=== PATIENT | male | born 1940 | race Caucasian/White ===

== ENCOUNTER 2024-02-20 13:25 | Day surgery (SDC) | payer MEDICARE, BC ==
[~2024-02-20 13:25] MED LIST: Lactated Ringers 1,000 ML IV SCH; Sodium Chloride 0.9% 10 ML Syringe FLUSH PRN; Sodium Chloride 0.9% 10 ML Syringe FLUSH SCH
[2024-02-20] MEDS ORDERED: Midazolam 1 MG/ML 2 ML SDV ONE (13:37)
[2024-02-20] MEDS ORDERED: fentaNYL 250 MCG/5 ML SDV ONE (13:37)
[2024-02-20] MEDS ORDERED: ceFAZolin 2 GM Vial ONE (13:38)
[2024-02-20] MEDS ORDERED: Lidocaine 1% 4 ML ONE (13:38)
[2024-02-20] MEDS ORDERED: Propofol 200 MG/20 ML SDV ONE (13:38)
[2024-02-20] MEDS ORDERED: Rocuronium 50 MG/5 ML Vial ONE (13:38)
[2024-02-20] MEDS ORDERED: Lidocaine 1% 2 ML ONE (13:42)
[2024-02-20] MEDS: Lactated Ringers 1,000 ML IV SCH (14:00)
[2024-02-20] MEDS ORDERED: Sodium Chloride 0.9% 10 ML Syringe FLUSH PRN (14:04)
[2024-02-20] MEDS ORDERED: Sodium Chloride 0.9% 10 ML Syringe FLUSH SCH (14:15)
[2024-02-20] MEDS: Acetaminophen 325 MG Tab PO SCH (14:17)
[2024-02-20] MEDS: Bupivacaine 0.5% 30 ML SDV ONE (16:07)
[2024-02-20] MEDS ORDERED: Sugammadex Sodium 200 MG/2 ML VIAL IV ONE (16:30)
[2024-02-20] MEDS ORDERED: HYDROmorphone 0.5 MG/0.5 ML Syringe IVPUSH PRN (17:06)
[2024-02-20] MEDS ORDERED: fentaNYL 100 MCG/2 ML SDV IVPUSH PRN (17:06)
[2024-02-20] MEDS ORDERED: Ondansetron 4 MG/2 ML SDV IVPUSH PRN (17:06)
[2024-02-20] MEDS: EPINEPHrine 1 MG/ML SDV ONE (17:09)
[2024-02-20] MEDS ORDERED: traMADol 50 MG Tab PO PRN (17:20)
[2024-02-21] MEDS ORDERED: Acetaminophen 325 MG Tab PO SCH (13:30)
== END 2024-02-20 19:25 | disposition home or self-care (01) ==
LOC: JD.SDS 13:25
PROVIDERS: ATTEND Surgery
DX: K42.9 Umbilical hernia without obstruction or gangrene (principal); I25.10 Atherosclerotic heart disease of native coronary artery without angina pectoris; E11.9 Type 2 diabetes mellitus without complications; I10 Essential (primary) hypertension; K21.9 Gastro-esophageal reflux disease without esophagitis; Z87.891 Personal history of nicotine dependence
CPT/HCPCS: 49591; 82947; A9270; J0171; J0665; J0690; J2250; J2704; J3010; J3490; J7120

== ENCOUNTER 2024-07-26 18:08 | Inpatient (IN) | payer MEDICARE, BC ==
[2024-07-26 19:10] LABS: HEMATOCRIT 39.1 % (42.0-52.0); HEMOGLOBIN 13.4 gm/dl (14.0-18.0); MEAN CORPUSCULAR HEMOGLOBIN 31.6 pg (28.0-32.0); MEAN CORPUSCULAR HGB CONC 34.3 g/dl (32.0-36.0); MEAN CORPUSCULAR VOLUME 92.2 fl (83.0-99.0); MEAN PLATELET VOLUME 10.4 fl (9.4-12.4); PLATELET COUNT,PLT 186 K/mm3 (150-400); RED BLOOD CELL COUNT 4.24 M/mm3 (4.52-5.90); WHITE BLOOD CELL COUNT,WBC 6.49 K/mm3 (3.9-11.3)
[2024-07-26] MEDS: Sodium Chloride 0.9% 1,000 ML IV ONE (19:10)
[2024-07-26] MEDS: Ondansetron 4 MG/2 ML SDV IVPUSH ONE (19:12)
[2024-07-26] MEDS: Sodium Chloride 0.9% 10 ML Syringe FLUSH PRN (19:13)
[2024-07-26 19:30] LABS: BAND PERCENT MAN 0 % (0-10); BASOPHILS PERCENT MAN 0 (0.2-1.2); EOSINOPHILS PERCENT MAN 0 % (0.8-7.0); LYMPHOCYTES % ATYPICAL MANUAL 0 %; LYMPHOCYTES PERCENT MAN 9 % (20-40); MONOCYTES PERCENT MAN 6 % (2-10)
[2024-07-26 19:32] LABS: INR 1.14; OVALOCYTES 1+ SLIGHT; PLATELET COUNT ESTIMATE ADEQUATE; POIKILOCYTOSIS 1+ SLIGHT
[2024-07-26 19:44] LABS: A/G RATIO 0.9 (1-2); ALBUMIN 3.4 g/dl (3.4-5.0); ANION GAP 13.8 (5-15); BILIRUBIN TOTAL 1.6 mg/dL (0.2-1.0); BUN/CREATININE RATIO 14.6 (14-18); C-REACTIVE PROTEIN 0.99 mg/dL (<0.30); CALCIUM 8.9 mg/dL (8.5-10.1); CREATININE 1.3 mg/dL (0.7-1.3); EST CRCL DRUG DOSING (CG) 42.32 mL/min
[2024-07-26 19:58] LABS: POTASSIUM,K 3.8 mEq/L (3.5-5.1)
[2024-07-26] MEDS: Oseltamivir 75 MG Cap PO ONE (22:16)
[2024-07-27] MEDS: Acetaminophen 325 MG Tab PO PRN ×2 (00:25→12:50)
[2024-07-27] MEDS: Metoprolol Succinate 50 MG Tab.ER PO SCH (00:25)
[2024-07-27 05:25] LABS: BASOPHILS PERCENT AUTO 0.3 % (0.0-1.0); HEMATOCRIT 37.7 % (42.0-52.0); IMMATURE GRAN ABSOLUTE AUTO 0.04 K/mm3 (0.00-0.05); IMMATURE GRAN PERCENT AUTO 0.6 % (0.0-0.4); LYMPHOCYTES ABSOLUTE AUTO 1.1 K/mm3 (1.0-4.8); MEAN CORPUSCULAR HEMOGLOBIN 31.6 pg (28.0-32.0); MEAN CORPUSCULAR HGB CONC 34.5 g/dl (32.0-36.0); MEAN CORPUSCULAR VOLUME 91.7 fl (83.0-99.0); MEAN PLATELET VOLUME 10.9 fl (9.4-12.4); MONOCYTES ABSOLUTE AUTO 0.6 K/mm3 (0.0-0.8); MONOCYTES PERCENT AUTO 8.8 % (0.0-8.0); NEUTROPHILS ABSOLUTE AUTO 5.4 K/mm3 (1.8-7.7); NEUTROPHILS PERCENT AUTO 75.3 % (41.0-71.0); PLATELET COUNT,PLT 159 K/mm3 (150-400); RED BLOOD CELL COUNT 4.11 M/mm3 (4.52-5.90); WHITE BLOOD CELL COUNT,WBC 7.18 K/mm3 (3.9-11.3)
[2024-07-27 05:26] LABS: A/G RATIO 0.9 (1-2); ALBUMIN 3.1 g/dl (3.4-5.0); BILIRUBIN TOTAL 1.5 mg/dL (0.2-1.0); CALCIUM 8.4 mg/dL (8.5-10.1); CREATININE 1.2 mg/dL (0.7-1.3); EST CRCL DRUG DOSING (CG) 44.74 mL/min; MAGNESIUM 1.6 mg/dL (1.8-2.4); PHOSPHORUS 2.9 mg/dL (2.6-4.7); PROTEIN TOTAL,TP 6.4 g/dl (6.4-8.2)
[2024-07-27] MEDS: Oseltamivir 30 MG Cap PO SCH (09:00)
[2024-07-27] MEDS: Levothyroxine 50 MCG Tab PO SCH (09:00)
[2024-07-27] MEDS: Enoxaparin 40 MG/0.4 ML Syringe SUBCUT SCH (09:00)
[2024-07-27] MEDS: Tamsulosin 0.4 MG Cap.ER PO SCH (09:00)
[2024-07-27] MEDS: Clopidogrel 75 MG Tab PO SCH (09:00)
[2024-07-27] MEDS: Spironolactone 25 MG Tab PO SCH (09:01)
[2024-07-27] MEDS: prednisoLONE Acetate 1% Ophth Susp 5 ML Bottle EYERT SCH (09:01)
[2024-07-27] MEDS: Lisinopril 20 MG Tab PO SCH (09:05)
[2024-07-27] MEDS ORDERED: cefTRIAXone 1 GM in Sodium Chloride 0.9% 50 ML IV SCH (10:00)
[2024-07-27] MEDS: cefTRIAXone 1 GM Vial IV SCH (11:37)
[2024-07-27] MEDS: Doxycycline 100 MG in Sodium Chloride 0.9% 100 ML IV SCH (11:37)
[2024-07-27] MEDS: Latanoprost 0.005% Ophth Soln 2.5 ML Bottle EYERT SCH (18:09)
[2024-07-27] MEDS ORDERED: 50% Dextrose in Water 50 ML Syringe IVPUSH PRN (21:08)
[2024-07-27] MEDS: atorvaSTATin 20 MG Tab PO SCH (21:57)
[2024-07-27] MEDS: Magnesium Sulfate/Water Premix 2 GM in Premix Bag 1 BAG IV ONE (21:57)
[2024-07-28 06:02] LABS: BASOPHILS PERCENT AUTO 0.2 % (0.0-1.0); EOSINOPHILS PERCENT AUTO 0.1 % (0.0-6.0); HEMATOCRIT 41.6 % (42.0-52.0); IMMATURE GRAN ABSOLUTE AUTO 0.02 K/mm3 (0.00-0.05); IMMATURE GRAN PERCENT AUTO 0.2 % (0.0-0.4); LYMPHOCYTES ABSOLUTE AUTO 1.5 K/mm3 (1.0-4.8); LYMPHOCYTES PERCENT AUTO 17.3 % (24.0-44.0); MEAN CORPUSCULAR HEMOGLOBIN 31.5 pg (28.0-32.0); MEAN CORPUSCULAR HGB CONC 33.7 g/dl (32.0-36.0); MEAN CORPUSCULAR VOLUME 93.7 fl (83.0-99.0); MEAN PLATELET VOLUME 10.4 fl (9.4-12.4); MONOCYTES ABSOLUTE AUTO 0.9 K/mm3 (0.0-0.8); MONOCYTES PERCENT AUTO 10.1 % (0.0-8.0); NEUTROPHILS ABSOLUTE AUTO 6.4 K/mm3 (1.8-7.7); NEUTROPHILS PERCENT AUTO 72.1 % (41.0-71.0); PLATELET COUNT,PLT 176 K/mm3 (150-400); RED BLOOD CELL COUNT 4.44 M/mm3 (4.52-5.90); WHITE BLOOD CELL COUNT,WBC 8.85 K/mm3 (3.9-11.3)
[2024-07-28 06:39] LABS: A/G RATIO 0.9 (1-2); ALBUMIN 3.1 g/dl (3.4-5.0); ANION GAP 14.2 (5-15); BILIRUBIN TOTAL 1.3 mg/dL (0.2-1.0); CALCIUM 8.3 mg/dL (8.5-10.1); CREATININE 1.2 mg/dL (0.7-1.3); EST CRCL DRUG DOSING (CG) 44.67 mL/min; POTASSIUM,K 4.2 mEq/L (3.5-5.1); PROTEIN TOTAL,TP 6.6 g/dl (6.4-8.2)
[2024-07-28] MEDS: Doxycycline Monohydrate 100 MG Cap PO SCH (08:13)
[2024-07-28] MEDS: Insulin Lispro 100 Unit/ML 3 ML KwikPen SUBCUT SCH (08:19)
[2024-07-28] MEDS: Metoprolol Tartrate 5 MG/5 ML SDV IVPUSH ONE ×2 (18:54→23:26)
[2024-07-28 19:03] LABS: TSH 1.458 uIU/mL (0.358-3.74)
[2024-07-28 19:19] LABS: ANION GAP 18.9 (5-15); BUN/CREATININE RATIO 21.4 (14-18); CALCIUM 8.4 mg/dL (8.5-10.1); CREATININE 1.4 mg/dL (0.7-1.3); EST CRCL DRUG DOSING (CG) 38.29 mL/min; POTASSIUM,K 3.9 mEq/L (3.5-5.1)
[2024-07-29 05:44] LABS: BASOPHILS PERCENT AUTO 0.1 % (0.0-1.0); EOSINOPHILS PERCENT AUTO 0.1 % (0.0-6.0); HEMOGLOBIN 14.8 gm/dl (14.0-18.0); IMMATURE GRAN ABSOLUTE AUTO 0.02 K/mm3 (0.00-0.05); IMMATURE GRAN PERCENT AUTO 0.2 % (0.0-0.4); LYMPHOCYTES ABSOLUTE AUTO 2.1 K/mm3 (1.0-4.8); LYMPHOCYTES PERCENT AUTO 24.8 % (24.0-44.0); MEAN CORPUSCULAR HEMOGLOBIN 31.6 pg (28.0-32.0); MEAN CORPUSCULAR HGB CONC 33.6 g/dl (32.0-36.0); MEAN CORPUSCULAR VOLUME 93.8 fl (83.0-99.0); MEAN PLATELET VOLUME 10.6 fl (9.4-12.4); MONOCYTES PERCENT AUTO 11.5 % (0.0-8.0); NEUTROPHILS ABSOLUTE AUTO 5.3 K/mm3 (1.8-7.7); NEUTROPHILS PERCENT AUTO 63.3 % (41.0-71.0); PLATELET COUNT,PLT 189 K/mm3 (150-400); RED BLOOD CELL COUNT 4.69 M/mm3 (4.52-5.90); WHITE BLOOD CELL COUNT,WBC 8.34 K/mm3 (3.9-11.3)
[2024-07-29 06:11] LABS: A/G RATIO 0.8 (1-2); ANION GAP 15.1 (5-15); BILIRUBIN TOTAL 1.1 mg/dL (0.2-1.0); BUN/CREATININE RATIO 25.4 (14-18); CALCIUM 8.4 mg/dL (8.5-10.1); CREATININE 1.3 mg/dL (0.7-1.3); EST CRCL DRUG DOSING (CG) 41.49 mL/min; POTASSIUM,K 4.1 mEq/L (3.5-5.1); PROTEIN TOTAL,TP 6.6 g/dl (6.4-8.2)
[2024-07-29] MEDS: Sodium Chloride 0.9% 1,000 ML IV SCH (06:26)
[2024-07-29] MEDS: Aspirin 325 MG Tab.EC PO STA (07:35)
[2024-07-29 08:20] LABS: INR 1.1; PROTHROMBIN TIME 11.6 SECONDS (9.7-12.0)
[2024-07-29 08:22] LABS: PTT,PARTIAL THROMBOPLSTIN TIME 33.1 SECONDS (21.7-31.4)
[2024-07-29] MEDS: Heparin Sodium 5,000 Units/ML Vial IVPUSH ONE (08:26)
[2024-07-29] MEDS: Heparin Sodium 5,000 Units/ML Vial ONE (08:27)
[2024-07-29] MEDS: Heparin Sodium/D5W 250 ML IV SCH (08:33)
[2024-07-29] MEDS: Clopidogrel 75 MG Tab PO SCH (12:28)
[2024-07-29] MEDS: Aspirin 81 MG Tab.Chew PO STA (12:49)
[2024-07-29] MEDS: atorvaSTATin 40 MG Tab PO SCH (21:46)
[2024-07-29] MEDS: Heparin Sodium 5,000 Units/ML Vial IV ONE (22:58)
[2024-07-29] MEDS: Nitroglycerin 0.4 MG Tab.SL ONE (23:14)
[2024-07-29] MEDS: Nitroglycerin 0.4 MG Tab.SL SL ONE (23:23)
[2024-07-30 06:08] LABS: HEMATOCRIT 39.7 % (42.0-52.0); MEAN CORPUSCULAR HEMOGLOBIN 31.6 pg (28.0-32.0); MEAN CORPUSCULAR HGB CONC 33.2 g/dl (32.0-36.0); MEAN PLATELET VOLUME 10.8 fl (9.4-12.4); PLATELET COUNT,PLT 183 K/mm3 (150-400); RED BLOOD CELL COUNT 4.18 M/mm3 (4.52-5.90); WHITE BLOOD CELL COUNT,WBC 5.67 K/mm3 (3.9-11.3)
[2024-07-30 06:31] LABS: HEMOGLOBIN 13.2 gm/dl (14.0-18.0)
[2024-07-30 06:39] LABS: A/G RATIO 0.8 (1-2); ALBUMIN 2.6 g/dl (3.4-5.0); BILIRUBIN TOTAL 1.1 mg/dL (0.2-1.0); BUN/CREATININE RATIO 29.1 (14-18); CALCIUM 8.1 mg/dL (8.5-10.1); CREATININE 1.1 mg/dL (0.7-1.3); EST CRCL DRUG DOSING (CG) 49.03 mL/min; PROTEIN TOTAL,TP 5.9 g/dl (6.4-8.2)
[2024-07-30] MEDS: Aspirin 81 MG Tab.Chew PO SCH (08:02)
[2024-07-30] MEDS: Isosorbide Dinitrate 20 MG Tab PO SCH (21:12)
[2024-07-31 06:12] LABS: HEMATOCRIT 38.5 % (42.0-52.0); HEMOGLOBIN 12.9 gm/dl (14.0-18.0); MEAN CORPUSCULAR HEMOGLOBIN 31.6 pg (28.0-32.0); MEAN CORPUSCULAR HGB CONC 33.5 g/dl (32.0-36.0); MEAN CORPUSCULAR VOLUME 94.4 fl (83.0-99.0); MEAN PLATELET VOLUME 10.6 fl (9.4-12.4); PLATELET COUNT,PLT 185 K/mm3 (150-400); RED BLOOD CELL COUNT 4.08 M/mm3 (4.52-5.90)
[2024-07-31 06:41] LABS: A/G RATIO 0.8 (1-2); ALBUMIN 2.6 g/dl (3.4-5.0); ANION GAP 15.1 (5-15); EST CRCL DRUG DOSING (CG) 55.09 mL/min; POTASSIUM,K 4.1 mEq/L (3.5-5.1); PROTEIN TOTAL,TP 5.9 g/dl (6.4-8.2)
[2024-07-31] MEDS: Apixaban 5 MG Tab PO SCH (14:40)
== END 2024-08-01 13:00 | DRG 193 ==
LOC: JD.ED 18:08 → JD.MS 22:11
PROVIDERS: ADMIT Student in an Organized Health Care Education/Training Program; ATTEND Family Medicine
DX: J11.1 Influenza due to unidentified influenza virus with other respiratory manifestations (principal); R73.9 Hyperglycemia, unspecified; J10.00 Influenza due to other identified influenza virus with unspecified type of pneumonia; I21.4 Non-ST elevation (NSTEMI) myocardial infarction; I25.10 Atherosclerotic heart disease of native coronary artery without angina pectoris; I10 Essential (primary) hypertension; H54.7 Unspecified visual loss; H91.90 Unspecified hearing loss, unspecified ear; E11.65 Type 2 diabetes mellitus with hyperglycemia; N40.0 Benign prostatic hyperplasia without lower urinary tract symptoms; E03.9 Hypothyroidism, unspecified; I44.7 Left bundle-branch block, unspecified; M10.9 Gout, unspecified; E83.42 Hypomagnesemia; I48.91 Unspecified atrial fibrillation; Z79.02 Long term (current) use of antithrombotics/antiplatelets; Z79.52 Long term (current) use of systemic steroids; Z79.84 Long term (current) use of oral hypoglycemic drugs; Z79.899 Other long term (current) drug therapy; Z86.73 Personal history of transient ischemic attack (TIA), and cerebral infarction without residual deficits; Z95.5 Presence of coronary angioplasty implant and graft
CPT/HCPCS: 36415; 71045; 80053; 83605; 85007; 85027; 85610; 86140; 87040 ×2; 87428; 96361; 96374; 99285; J2405; J7030; 51701; 80048; 82947; 83735; 84100; 84443; 84484; 85025; 85379; 85730; 87641; 93005; 93306; 97110-GP; 97116-GP; 97161-GP; 97530-GP; 99284; A9270-GY; C1758; J0696; J1644; J1650; J1815; J3475; J3490